=== PATIENT | male | born 1935 | race Caucasian/White ===

== ENCOUNTER 2021-01-03 13:40 | Outpatient (CLI) | payer MEDICARE, BC | END 2021-01-03 23:59 | disposition home or self-care (01) | LOC: LAB.N 13:40 | PROVIDERS: ATTEND Family Medicine | DX: N39.0 Urinary tract infection, site not specified (principal) | CPT/HCPCS: 87086 ==

== ENCOUNTER 2021-02-06 08:00 | Outpatient (CLI) | payer MEDICARE, BC | END 2021-02-06 23:59 | disposition home or self-care (01) | LOC: LAB.N 08:00 | PROVIDERS: ATTEND Physician Assistant Medical | DX: M10.071 Idiopathic gout, right ankle and foot (principal) | CPT/HCPCS: 36415; 84550 ==

== ENCOUNTER 2021-02-06 09:45 | Outpatient (CLI) | payer MEDICARE, BC ==
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
== END 2021-02-06 23:59 ==
LOC: DI.N 09:45
PROVIDERS: ATTEND Physician Assistant Medical
DX: M10.071 Idiopathic gout, right ankle and foot (principal)